=== PATIENT | male | born 1985 | race African-American/Black ===

== ENCOUNTER 2022-11-25 15:44 | Emergency (ER) | payer OTHER ==
[~2022-11-25] VITALS: Ht 172.7 cm; Wt 79.5 kg
[2022-11-25] MEDS ORDERED: prozac (16:07)
[2022-11-25] MEDS ORDERED: keppra (16:07)
[2022-11-25 16:20] VITALS: BP 127/82
[2022-11-25] MEDS ORDERED: IBUPROFEN 600MG TABLET PO STA (16:20)
[2022-11-25] MEDS ORDERED: LEVETIRACETAM 500MG/5ML CUP PO ONE (18:45)
[2022-11-25] MEDS ORDERED: LEVETIRACETAM 500MG/5ML CUP PO NR (18:45)
== END 2022-11-25 19:29 | disposition home or self-care (01) ==
LOC: ER 15:44
DX: R07.89 Other chest pain (principal); R51.9 Headache, unspecified; Z86.19 Personal history of other infectious and parasitic diseases; Z88.8 Allergy status to other drugs, medicaments and biological substances
CPT/HCPCS: 71045; 93005; 99285

== ENCOUNTER 2023-05-14 08:34 | Emergency (ER) | payer OTHER ==
[~2023-05-14] VITALS: Ht 167.6 cm; Wt 69.0 kg
[~2023-05-14 08:34] MED LIST: keppra; prozac
[2023-05-14 08:40] VITALS: BP 103/64; PULSE 62; RESP 16; TEMP 97.7; O2SAT 100
[2023-05-14 09:52] LABS: BASOPHILS % 0.3 % (0.0-2.0); EOSINOPHILS % 0.7 % (0.0-5.0); HEMATOCRIT. 38.5 % (42.0-52.0); HEMOGLOBIN. 12.9 g/dL (14.0-18.0); MEAN CORPUSCULAR HEMOGLOBIN 30.3 pg (28.0-32.0); MEAN CORPUSCULAR VOLUME 90.8 fL (80.0-94.0); MONOCYTES % 10.5 % (2.0-8.0); NEUTROPHILS % 53.5 % (40.0-76.0); PLATELET 320 x1000/uL (130-400); RED BLOOD CELL COUNT 4.24 mill/uL (4.7-6.1); RED CELL DISTRIBUTION WIDTH 15.1 % (11.6-14.6)
[2023-05-14 09:54] LABS: CHLORIDE 109 mEq/L (98-107)
[2023-05-14] MEDS ORDERED: TOPUD PO (10:23)
[2023-05-14] MEDS ORDERED: VANCOMYCIN 1G PREMIX 200 ML IV ONE (10:30)
[2023-05-14] MEDS ORDERED: PIPERACILLIN/TAZ 3.375G PREMIX 50 ML IV ONE (10:30)
== END 2023-05-14 11:09 ==
LOC: ER 09:03
DX: R07.89 Other chest pain (principal); I48.91 Unspecified atrial fibrillation; Z88.8 Allergy status to other drugs, medicaments and biological substances; Z86.59 Personal history of other mental and behavioral disorders
CPT/HCPCS: 36415; 71045; 80053; 83880; 84484; 85025; 99284

== ENCOUNTER 2024-02-16 11:50 | Emergency (ER) | payer MEDICAID, OTHER ==
[~2024-02-16] VITALS: Ht 170.2 cm; Wt 59.0 kg
[~2024-02-16 11:50] MED LIST changes: +TOPUD PO
[2024-02-16 11:59] VITALS: BP 112/75; PULSE 71; RESP 18; TEMP 98.2; O2SAT 100
[2024-02-16] MEDS ORDERED: KETOROLAC 30MG/ML VIAL IV STA (12:06)
[2024-02-16] MEDS ORDERED: ONDANSETRON HCL 4MG/2ML INJ IV STA (12:06)
[2024-02-16] MEDS ORDERED: LORAZEPAM 2MG/ML INJ IV ONE (12:15)
[2024-02-16] MEDS ORDERED: SODIUM CHLORIDE 0.9% 1,000 ML IV ONE (12:15)
== END 2024-02-16 15:40 | disposition left against medical advice (07) ==
LOC: ER 11:50
DX: R11.2 Nausea with vomiting, unspecified (principal); R10.13 Epigastric pain; I48.91 Unspecified atrial fibrillation; F31.9 Bipolar disorder, unspecified; F20.9 Schizophrenia, unspecified
CPT/HCPCS: 99283; 93005; J7030

== ENCOUNTER 2024-10-20 23:34 | Emergency (ER) | payer OTHER, MEDICAID ==
[~2024-10-20] VITALS: Ht 172.7 cm; Wt 74.0 kg
[2024-10-20 23:38] VITALS: O2SAT 99
[2024-10-21] MEDS: DIPHENHYDRAMINE 50MG/ML VIAL IM ONE (01:45)
[2024-10-21] MEDS: LORAZEPAM 2MG/ML INJ IM ONE (02:31)
[2024-10-21 03:32] LABS: BASOPHILS % 0.2 % (0.0-2.0); DIFFERENTIAL COMMENT 0; EOSINOPHILS % 1.1 % (0.0-5.0); HEMOGLOBIN. 11.3 g/dL (14.0-18.0); LYMPHOCYTES % 19.8 % (20.0-50.0); MEAN CORPUSCULAR HEMOGLOBIN 25.5 pg (28.0-32.0); MEAN CORPUSCULAR HGB CONC 32.2 g/dL (31.0-37.0); MEAN CORPUSCULAR VOLUME 79.3 fL (80.0-94.0); MEAN PLATELET VOLUME 7.2 fl (7.4-10.4); MONOCYTES % 7.8 % (2.0-8.0); NEUTROPHILS % 71.1 % (40.0-76.0); PLATELET 308 x1000/uL (130-400); RED BLOOD CELL COUNT 4.41 mill/uL (4.7-6.1); WHITE BLOOD COUNT 8.1 x1000/uL (4.5-11.0)
[2024-10-21 03:41] LABS: CHLORIDE 108 mEq/L (98-107); POTASSIUM 3.6 mEq/L (3.5-5.1); SODIUM 142 mEq/L (136-145)
[2024-10-21 03:42] LABS: CALCIUM 9.1 mg/dL (8.7-10.4); CARBON DIOXIDE 25 mEq/L (21-32)
[2024-10-21 03:47] LABS: CREATININE 0.8 mg/dL (0.6-1.3); GLUCOSE 116 mg/dL (70-105); UREA NITROGEN BLOOD 6 mg/dL (9-23)
[2024-10-21 03:49] LABS: ACETAMINOPHEN < 2 ug/mL (10-30)
[2024-10-21 04:15] LABS: ETHANOL BLOOD < 10 mg/dL (<10)
[2024-10-21] MEDS: ACETAMINOPHEN 325MG TABLET PO ONE (11:02)
[2024-10-21] MEDS: ACETAMINOPHEN 500MG TABLET PO PRN (12:43)
[2024-10-21] MEDS: OLANZAPINE 5MG TABLET ODT PO ONE (15:45)
[2024-10-21] MEDS: LACTULOSE 20G/30ML UDC PO ONE (17:19)
[2024-10-21] MEDS: ACETAMINOPHEN 500MG TABLET PO NR (18:31)
[2024-10-22] MEDS: LORAZEPAM 0.5MG TABLET PO ONE (02:53)
[2024-10-22] MEDS: IBUPROFEN 600MG TABLET PO ONE (02:53)
[2024-10-22] MEDS: QUETIAPINE FUMARATE 50MG TABLET PO SCH (09:00)
[2024-10-22] MEDS: ACETAMINOPHEN 325MG TABLET PO NR (09:08)
[2024-10-22 09:42] LABS: *AMPHETAMINES SCREEN URINE PRESUMPTIVE POSITIVE (NEGATIVE); *BARBITURATES SCREEN URINE PRESUMPTIVE POSITIVE (NEGATIVE); *BENZODIAZEPINES SCREEN URINE PRESUMPTIVE POSITIVE (NEGATIVE); *COCAINE SCREEN URINE NEGATIVE (NEGATIVE)
[2024-10-22 09:43] LABS: CANNABINOID URINE SCREEN PRESUMPTIVE POSITIVE (NEGATIVE); ECSTASY MDMA SCREEN URINE NEGATIVE (NEGATIVE); METHADONE URINE SCREEN NEGATIVE (NEGATIVE); OPIATES URINE SCREEN NEGATIVE (NEGATIVE); PHENCYCLIDINE URINE SCREEN NEGATIVE (NEGATIVE)
[2024-10-22] MEDS ORDERED: THIAMINE HCL 100MG TABLET PO SCH (10:15)
[2024-10-22] MEDS ORDERED: ONDANSETRON HCL 4MG TABLET PO PRN (10:15)
[2024-10-22] MEDS ORDERED: FOLIC ACID 1MG TABLET PO SCH (10:15)
[2024-10-22] MEDS ORDERED: MULTIVITAMINS,THER W-MINERALS TABLET PO SCH (10:15)
[2024-10-22] MEDS: FOLIC ACID 1MG TABLET PO SCH (10:30)
[2024-10-22] MEDS: CHLORDIAZEPOXIDE 25MG CAPSULE PO PRN (10:30)
[2024-10-22] MEDS: THIAMINE HCL 100MG TABLET PO SCH (10:30)
[2024-10-22] MEDS: MULTIVITAMINS,THER W-MINERALS TABLET PO SCH (10:31)
[2024-10-22] MEDS: GABAPENTIN 300MG CAPSULE PO SCH (14:13)
[2024-10-22] MEDS: LORAZEPAM 1MG TABLET PO ONE (16:58)
[2024-10-22 20:00] VITALS: BP 121/76; PULSE 71; RESP 16; TEMP 36.78072; O2SAT 98
== END 2024-10-22 20:00 ==
LOC: ER 23:34
DX: R45.851 Suicidal ideations (principal); I48.91 Unspecified atrial fibrillation; Z20.822 Contact with and (suspected) exposure to COVID-19; Z88.8 Allergy status to other drugs, medicaments and biological substances; Z88.3 Allergy status to other anti-infective agents; Z98.890 Other specified postprocedural states; Z86.59 Personal history of other mental and behavioral disorders
CPT/HCPCS: 80048; 80307; 80329; 80320; 85025; 99285; 87426; 36415; 93005; 96372; 80305; J1200; J2060; Z7610; 99284; G0480